=== PATIENT | female | born 1960 | race Caucasian/White ===

== ENCOUNTER 2017-12-12 19:27 | Emergency (ER) | payer SELFPAY ==
[~2017-12-12] VITALS: Ht 160 cm; Wt 59.0 kg
[~2017-12-12 19:27] MED LIST: ALBU6.7H INH; DICL75TA PO; NAPR500T2 PO; PRED-503 PO; ROBA750T PO
[2017-12-12 19:47] VITALS: BP 132/74; PULSE 87; RESP 20; TEMP 98.7; O2SAT 98
[2017-12-12] MEDS ORDERED: IBUPROFEN 400 MG TAB PO ONE (20:00)
--- NOTE | 2017-12-12 20:12 | PD ---
HPI Chief Complaint: Fall Time Seen by Provider: 19:53 Travel History International Travel<30 days: No Contact w/Intl Traveler<30days: No Traveled to known affect area: No History of Present Illness HPI 57yo F with PMH of alcohol abuse presents to the ED with c/o right hip for for 2 weeks. Said she slip and fell 2 weeks ago and it has been hurting. Pt is able to ambulate since then but insists she wants an xray and it hurts a lot. Denies any head trauma, LOC, chest pain, sob, n/v, abdominal pain, focal weakness or numbness. PFSH Past Medical History Asthma: Yes Blood Disorders: No Anxiety: Yes Depression: Yes Heart Rhythm Problems: Yes ("RACES") Cancer: No Cardiovascular Problems: No COPD: Yes Coronary Artery Disease: Yes Diminished Hearing: No Endocrine: No Gastrointestinal Disorders: No Genitourinary: No Immune Disorder: No Musculoskeletal: No Neurologic: No Reproductive: No Respiratory: No Immunizations Current: No ?: Not Menopausal: Yes : 2 Para: 2 Past Surgical History Surgical History: No Previous Surgery AICD: No Pacemaker: No Other Surgery: No Social History Alcohol Use: Yes (3 times weekly) Tobacco Use: Yes (1 ppd) Substance Use: No Allergies-Medications (Allergen,Severity, Reaction): Coded Allergies: penicillin G (Unverified Allergy, Severe, 07/16/17) acetaminophen (Unverified Adverse Reaction, Severe, "MAKES MY SKIN CRAWL" , 07/16/17) propoxyphene (Unverified Adverse Reaction, Severe, "MAKES MY SKIN CRAWL", 07/16/17) Reported Meds & Prescriptions Reported Meds & Active Scripts Active Deltasone (Prednisone) 20 Mg Tab 20 Mg PO BID Robaxin (Methocarbamol) 750 Mg Tab 1,500 Mg PO TID [address] (Diclofenac Sodium) 75 Mg Tabdr 75 Mg PO BID Reported Proventil Hfa 6.7 GM Inh (Albuterol Sulfate) 90 Mcg/Act Aer 2 Puff INH Q6H PRN Naproxen 500 Mg Tab 500 Mg PO BID Review of Systems Except as stated in HPI: all other systems reviewed are Neg Physical Exam Narrative GENERAL: 57yo F not in distress. SKIN: Focused skin assessment warm/dry. HEAD: Atraumatic. Normocephalic. EYES: Pupils equal and round. No scleral icterus. No injection or drainage. ENT: No nasal bleeding or discharge. Mucous membranes pink and moist. NECK: Trachea midline. No JVD. CARDIOVASCULAR: Regular rate and rhythm. No murmur appreciated. RESPIRATORY: No accessory muscle use. Clear to auscultation. Breath sounds equal bilaterally. GASTROINTESTINAL: Abdomen soft, non-tender, nondistended. MUSCULOSKELETAL: Right hip: +TTP proximal femur. Sensation intact. Distal pulses intact. NEUROLOGICAL: Awake and alert. No obvious cranial nerve deficits. Motor grossly within normal limits. Normal speech. PSYCHIATRIC: Appropriate mood and affect; insight and judgment normal. Data Data Last Documented VS Vital Signs Date Time Temp Pulse Resp B/P (MAP) Pulse Ox O2 Delivery O2 Flow Rate FiO2 12/12/17 19:47 98.7 87 20 132/74 (93) 98 Orders Orders Hip, Uni(Ap&Lat) W Ap Pelvis (12/12/17 ) Ibuprofen (Motrin) (12/12/17 20:00) Ketorolac Inj (Toradol Inj) (12/12/17 22:00) MDM Medical Decision Making Medical Screen Exam Complete: Yes Emergency Medical Condition: Yes Differential Diagnosis Fracture vs. contusion Narrative Course 57yo F with right hip pain after falling 2 weeks ago. Pt is able ambulate but said with pain. Xray right hip showed no fracture. Pt given ibuprofen and toradol which helped with the pain. Return precautions given. Diagnosis Primary Impression: Right hip pain Patient Instructions: General Instructions Departure Forms: Tests/Procedures Additional Instructions: Please follow up with your primary care physician in 3-7 days. Return to the ED if symptoms worsen. Med/Other Pt SpecificInfo: Prescription(s) given Scripts Ibuprofen (Ibuprofen) 400 Mg Tab 400 MG PO Q8H Y for PAIN SCALE 1 TO 4, #20 TAB 0 Refills Prov: Gloria Ramesh 12/12/17 Disposition: 01 DISCHARGE HOME Condition: Stable Gloria Ramesh Dec 12, 2017 20:12
--- NOTE | 2017-12-12 20:43 | RADRPT ---
EXAM DATE/TIME: 12/12/2017 20:14 [facility] COMPARISON: No previous studies available for comparison. INDICATIONS : Pain from fall 3 weeks ago and two days ago. MEDICAL HISTORY : None. SURGICAL HISTORY : None. ENCOUNTER: Initial ACUITY: 3 weeks PAIN SCORE: 10/10 LOCATION: Right hip. FINDINGS: 3 views of the right hip and pelvis. Bone alignment within normal limits. No evidence of fracture. N o evidence of a narrowing. CONCLUSION: Hip and pelvis radiographs within normal limits. Giovany Dela Cruz MD on December 12, 2017 at 20:40 Board Certified Radiologist. This report was verified electronically.
[2017-12-12] MEDS ORDERED: IBUP1TAB5 PO (22:00)
[2017-12-12] MEDS ORDERED: KETOROLAC TROMETHAMINE 60 MG/2 ML (IM) VIAL IM ONE (22:00)
== END 2017-12-12 22:22 | disposition home or self-care (01) ==
LOC: NEPD 19:27
DX: M25.551 Pain in right hip (principal); F17.200 Nicotine dependence, unspecified, uncomplicated; J44.9 Chronic obstructive pulmonary disease, unspecified
CPT/HCPCS: 73502; 96372; 99284; J1885